=== PATIENT | male | born 1985 | race Caucasian/White ===

== ENCOUNTER 2025-06-06 11:17 | Emergency (ER) | payer OTHER, SELFPAY ==
[2025-06-06 11:40] VITALS: BP 146/87; PULSE 66; RESP 18; TEMP 36.9; O2SAT 97
--- NOTE | 2025-06-06 12:01 | ED.WOUNDLAC ---
HPI - Wound/Laceration General Time Seen by Provider: 12:01 Date Seen: 06/06/25 Chief Complaint: Laceration/Wound Stated Complaint: hand puncture with luiz nail Time Seen by Provider: 06/06/25 11:26 Source: patient and RN notes reviewed Mode of arrival: ambulatory Limitations: no limitations History of Present Illness HPI narrative: This 39-year-old male is here with his cousin with complaint of laceration in his right hand. He accidentally took a luiz nail into the thenar eminence of his right thumb. When he moves his hand they do note bleeding. His last tetanus was 07/03/2008. He does agree to have this updated. There is no neurovascular compromise otherwise. He was helping his cousin at his house cleaning out some old would, he ended up getting the puncture wound from a luiz nail in the wood that he did not see. The nail is not reportedly retained. He does have a bandage around the hand. Related Data Previous Rx's ?Medication ?Instructions ?Recorded amoxicillin 875 mg-potassium 1 tab PO BID #10 tabs 06/06/25 clavulanate 125 mg tablet Allergies Allergy/AdvReac Type Severity Reaction Status Date / Time No Known Drug Allergies Allergy Verified 06/06/25 11:40 Review of Systems Narrative: As per HPI. Exam Const: Vital Signs, click to edit/add: Vital Signs - 24 hr 06/06/25 11:40 Temperature 98.4 F Pulse Rate [Pulse Oximeter] 66 Respiratory Rate 18 Blood Pressure [Ri ght Upper Arm] 146/87 H Pulse Oximetry 97 Oxygen Delivery Me thod Room Air Patient has a dressing overlying his right hand. This is taken down and can see in irregular wound in the thenar eminence. It looks to go into the subcutaneous tissue but do not see any other structures. He has full range of motion and preserve strength of this thumb, do not visualize any retained foreign body. Neurovascular is intact. 6 mL of 1% lidocaine with epinephrine were drawn up, about 4 mL were infused into the local tissues for anesthesia. He did tolerate this well. Documenting provider has reviewed patient's vital signs: yes Course Course ED Course: Patient's Tdap will be updated. Will have nursing staff irrigate this wound, x-ray to rule out retained foreign body. Will need to do a light closure of this otherwise he will have a flap in his hand that he will continue to aggravate and cause bleeding, this certainly will benefit from a few sutures to help tack the wound back into place and allow for healing. Think we can leave enough open space that if it would become infected that there will be a pathway to drainage. Reevaluation(s) Time of Reevaluation #1: 12:50 Reevaluation #1: Patient still had good anesthesia. Wound had been irrigated by nursing staff. There was an irregular about 1.5 cm wound on the thenar eminence. It did not seem to go any deeper than into the subcutaneous tissue. X-ray was showing no retained foreign body. Four simple interrupted sutures were placed with good wound closure. Did leave this a little more lightly sutured given this was a puncture wound. 4-0 Ethilon was used, there were no complications, no significant bleeding. Standard sterile technique was used and simple suture tray was used. Vital Signs Vital signs: Initial Vital Signs Temperature 98.4 F 06/06/25 11:40 Temperature Source Temporal Artery Scan 06/06/25 11:40 Pulse Rate 66 06/06/25 11:40 Respiratory Rate 18 06/06/25 11:40 Blood Pressure 146/87 H 06/06/25 11:40 Blood Pressure Mean 106 H 06/06/25 11:40 Pulse Oximetry 97 06/06/25 11:40 Oxygen Delivery Method Room Air 06/06/25 11:40 Vital Signs Temperature 98.4 F 06/06/25 11:40 Pulse Rate 66 06/06/25 11:40 Respiratory Rate 18 06/06/25 11:40 Blood Pressure 146/87 H 06/06/25 11:40 Pulse Oximetry 97 06/06/25 11:40 Oxygen Delivery Method Room Air 06/06/25 11:40 Temperature 98.4 F 06/06/25 11:40 Pulse Rate 66 06/06/25 11:40 Respiratory Rate 18 06/06/25 11:40 Blood Pressure 146/87 H 06/06/25 11:40 Pulse Oximetry 97 06/06/25 11:40 Oxygen Delivery Method Room Air 06/06/25 11:40 MDM - Wound/Laceration Imaging Data XR right hand: Attestation: I have reviewed the pertinent imaging results. My impression: I do not appreciate any retained foreign body. Radiologist's impression: Patient: ISHA CABRALES Facility:?[facility] [place] [facility] Patient ID:?[id number] Site Patient ID:?[id number]. Site :?[id number] Study:?XRay-Extremity Right HAND 3 VIEW-06/06/2025 12:19:51 PM Ordering Physician:Jodie Kay Final Report: INDICATION: Luiz nail punctured right ; rule out radiopaque foreign body. COMPARISON: None. TECHNIQUE: Three views of the right hand. FINDINGS: No acute fracture or dislocation. No radiopaque foreign bodies. No soft tissue gas identified. IMPRESSION: Negative radiographic examination of the right hand. Dictated by Magali Mcqueen MD @ 06/06/2025 12:32:39 PM (Electronic Signature) Discharge Plan Discharge Clinical Impression: Puncture wound Laceration of hand Qualifiers: Encounter type: initial encounter Foreign body presence: without foreign body Laterality: right Qualified Code(s): S61.411A - Laceration without foreign body of right hand, initial encounter Patient Disposition: Home, Self-Care Condition: Stable Instructions: Laceration (ED) Additional Instructions: Use bacitracin or Vaseline and bandages daily to twice daily as needed to keep this wound clean and dry. May wash hands and shower but otherwise should not submerge your hand in dishwater or hot tubs/swimming. If there is concern for infection, please seek evaluation. We will put you on Augmentin to try to help prevent infection. Will need to schedule a clinic follow-up in about 10 days to assess the wound for suture removal. Activity Level: Activity as Tolerated Prescriptions: New amoxicillin-pot clavulanate 875-125 mg tablet 1 tab PO BID Qty: 10 0RF Follow Up/Referrals: Provider,Not a Local [Primary Care Provider, Family Practice] Stand Alone Forms: [facility] Info Instructions
--- NOTE | 2025-06-06 12:05 | CRLHL7_ITS ---
For Patients: As a result of the Cures Act, medical imaging exams and procedure reports are released immediately into your electronic medical record. You may view this report before your referring provider. If you have questions, please contact your health care provider. INDICATION: Rene nail punctured right ; rule out radiopaque foreign body. COMPARISON: None. TECHNIQUE: Three views of the right hand. FINDINGS: No acute fracture or dislocation. No radiopaque foreign bodies. No soft tissue gas identified. IMPRESSION: Negative radiographic examination of the right hand. Dictated by Magali Mcqueen MD @ 06/06/2025 12:32:39 PM (Electronically Signed)
[2025-06-06] MEDS: TETANUS/DIPHTH/PERTUSSIS 0.5 ML SYRINGE IM (13:10)
[2025-06-06] MEDS: LIDOCAINE 1%-EPI 1:100,000 6 ML INFILTRATI (13:12)
== END 2025-06-06 13:13 | disposition home or self-care (01) ==
PROVIDERS: Emergency Provider Family Medicine
DX: S61.411A Laceration without foreign body of right hand, initial encounter (principal); W45.0XXA Nail entering through skin, initial encounter; W22.8XXA Striking against or struck by other objects, initial encounter; Z23 Encounter for immunization
CPT/HCPCS: 12001; 73130; 90471; 90715; 99283